=== PATIENT | male | born 1975 | race American Indian/Alaskan Native ===

== ENCOUNTER 2017-03-29 11:56 | Emergency (ER) | payer BC ==
[2017-03-29 12:32] VITALS: BMI 32.5
[2017-03-29 12:39] VITALS: BP 158/102; PULSE 94; RESP 20; TEMP 98.3; O2SAT 99
--- NOTE | 2017-03-29 18:04 | C.PDOC ---
History Of Present Illness 41 y/o male presents to the ER complaining of right eye pain which began in the morning. Patient states that he only has vision in the right eye and he sees spots. Patient denies having pain with eye movement and changes in vision. Chief Complaint (Nursing): Eye Problem History Per: Patient History/Exam Limitations: no limitations Onset/Duration Of Symptoms: Hrs Current Symptoms Are (Timing): Still Present Severity: Moderate Past Medical History Reviewed: Historical Data, Nursing Documentation, Vital Signs Vital Signs: Last Vital Signs Temp 98.3 F 03/29/17 12:38 Pulse 94 H 03/29/17 12:38 Resp 20 03/29/17 12:38 BP 158/102 H 03/29/17 12:38 Pulse Ox 99 03/29/17 18:12 - Medical History PMH: HTN, Hypercholesterolemia, Hyperlipidemia Denies: Chronic Kidney Disease Other Surgeries: Hx of orthopedic surgery Family History: States: No Known Family Hx - Social History Hx Alcohol Use: No Hx Substance Use: No - Immunization History Hx Tetanus Toxoid Vaccination: No Hx Influenza Vaccination: No Hx Pneumococcal Vaccination: Yes Review Of Systems Except As Marked, All Systems Reviewed And Found Negative. Eyes: Positive for: Pain (right eye pain). Negative for: Vision Change Physical Exam - Physical Exam Appears: Non-toxic, No Acute Distress Skin: Normal Color, Warm Head: Atraumatic, Normacephalic Eye(s): right: Normal Inspection, left: Other (pupil is opacified, no pupillary reflex) Nose: Normal Oral Mucosa: Moist Neck: Supple Chest: Symmetrical Extremity: Normal ROM Neurological/Psych: Oriented x3, Normal Speech, Normal Motor, Normal Sensation ED Course And Treatment O2 Sat by Pulse Oximetry: 99 (RA) Pulse Ox Interpretation: Normal Progress Note: Patient has been sent to ophthamologist for re-evaluation. Disposition - Disposition Referrals: Jamil Ny [Staff Provider] - Disposition: HOME/ ROUTINE Disposition Time: 13:40 Condition: GOOD Additional Instructions: Thank you for letting us take care of you today. The emergency medical care you received today was directed at your acute symptoms. If you were prescribed any medication, please fill it and take as directed. It may take several days for your symptoms to resolve. Return to the Emergency Department if your symptoms worsen, do not improve, or if you have any other problems. Please contact your doctor or call one of the physicians/clinics you have been referred to that are listed on the Patient Visit Information form that is included in your discharge packet. Bring any paperwork you were given at discharge with you along with any medications you are taking to your follow up visit. Our treatment cannot replace ongoing medical care by a primary care provider (PCP) outside of the emergency department. Thank you for allowing the [facility] team to be part of your care today. Follow up with the eye doctor now for re-evaluation and further management. Instructions: Blurred Vision (ED) Forms: [employer] (Bulgarian) - Clinical Impression Clinical Impression: Pain in eye - Scribe Statement The provider has reviewed the documentation as recorded by the Javieribrey Trejo Provider Attestation: All medical record entries made by the Javieribe were at my direction and personally dictated by me. I have reviewed the chart and agree that the record accurately reflects my personal performance of the history, physical exam, medical decision making, and the department course for this patient. I have also personally directed, reviewed, and agree with the discharge instructions and disposition.
== END 2017-03-29 13:47 | disposition home or self-care (01) ==
LOC: C.ER 11:56
DX: H57.11 Ocular pain, right eye (principal)